=== PATIENT | male | born 1985 | race Caucasian/White ===

== ENCOUNTER 2017-02-25 06:33 | Emergency (ER) | payer OTHER ==
[~2017-02-25] VITALS: Ht 170.2 cm; Wt 72.0 kg
[2017-02-25] MEDS ORDERED: IBUPROFEN 600 MG TABLET PO ONE (09:15)
[2017-02-25] MEDS ORDERED: OxyCODONE HCL/ACETAMINOPHEN 5-325 MG TABLET PO ONE ×2 (09:15→10:15)
[2017-02-25 11:25] VITALS: BP 129/83
== END 2017-02-25 11:49 | disposition home or self-care (01) ==
LOC: EMS 06:36
DX: S62.002A Unspecified fracture of navicular [scaphoid] bone of left wrist, initial encounter for closed fracture (principal); R03.0 Elevated blood-pressure reading, without diagnosis of hypertension; M25.552 Pain in left hip; F12.90 Cannabis use, unspecified, uncomplicated; F17.210 Nicotine dependence, cigarettes, uncomplicated; W17.89XA Other fall from one level to another, initial encounter; Y93.89 Activity, other specified; Y92.89 Other specified places as the place of occurrence of the external cause; Y99.8 Other external cause status
CPT/HCPCS: 99284